=== PATIENT | female | born 2005 | race Caucasian/White ===

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

== ENCOUNTER 2023-02-19 11:57 | Emergency (ER) | payer OTHER ==
[~2023-02-19] VITALS: Ht 162.6 cm; Wt 80.7 kg
[~2023-02-19 11:57] MED LIST changes: +CONCERTA36 MG PO; +CYCLOBENZAPRINE10 MG PO; +FLUTICASONE P10.6 GM; +MELOXICAM7.5 MG PO; +NEXPLANON68 MG SUB-Q; +STRATTERA40 MG PO; +VENTOLIN HFA18 GM INH
[2023-02-19 12:39] LABS: BASOPHILS 0.5 % (0-2); EOSINOPHILS 2.9 % (0-6); HEMATOCRIT 35.9 % (35.0-50.0); LYMPHOCYTES 30.2 % (24-44); MCHC 33.3 g/dl (30-36); MONOCYTES 6.8 % (0-12); NEUTROPHILS 59.6 % (39-80); PLATELET COUNT 184 K/uL (140-440); RBC 4.13 M/ul (4.3-5.7)
[2023-02-19 12:49] LABS: ANION GAP 10.6 (7-21); BUN/CREATININE RATIO 14.28 (6.0-28.6); CALCIUM 8.6 mg/dL (8.5-10.1); CREATININE, SERUM 0.7 mg/dL (0.55-1.02); POTASSIUM 3.6 mmol/L (3.5-5.1)
[2023-02-19] MEDS ORDERED: NAPROSYN500 MG PO (13:59)
[2023-02-19] MEDS ORDERED: VENTOLIN HFA18 GM INH (13:59)
[2023-02-19 14:15] VITALS: BP 113/65
== END 2023-02-19 14:17 | disposition home or self-care (01) ==
LOC: ED 11:57
PROVIDERS: Emergency Medicine
DX: R07.89 Other chest pain (principal); R06.00 Dyspnea, unspecified; F17.200 Nicotine dependence, unspecified, uncomplicated; J45.909 Unspecified asthma, uncomplicated; Z79.51 Long term (current) use of inhaled steroids; Z79.899 Other long term (current) drug therapy; Z79.3 Long term (current) use of hormonal contraceptives
CPT/HCPCS: 36415; 71045; 80048; 85025; 85379; 94640; 96374; 96375; 99285-25; J1885; J2060

== ENCOUNTER 2023-10-02 11:44 | Emergency (ER) | payer OTHER ==
[~2023-10-02] VITALS: Ht 162.6 cm; Wt 73.4 kg
[~2023-10-02 11:44] MED LIST changes: +METHYLPHENIDATE36 MG PO; +NAPROSYN500 MG PO; +ONDANSETRON ODT8 MG PO
--- OUTSIDE RECORDS SUMMARY | 2023-10-02 12:37 | XMS ---
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 E.D. VISIT COUNT (12 MO.) [address] [facility] TOTAL 4 NOTE: Visits indicate total known visits. ED/UCC VISIT TRACKING (12 MO.) 10/02/2023 11:44 [facility] [place] TYPE: Emergency COMPLAINT: - FALL 10 WKS 07/03/2023 12:25 [facility] [place] TYPE: Emergency COMPLAINT: - ABD PAIN, VOMITING, CHILLS, FATIGUE DIAGNOSES: - Anxiety disorder, unspecified - Depression, unspecified - Elevated white blood cell count, unspecified - Nausea with vomiting, unspecified - Noninfective gastroenteritis and colitis, unspecified - Other usp (current) drug therapy - Post-traumatic stress disorder, unspecified - Unspecified asthma, uncomplicated 02/19/2023 11:58 [facility] [place] TYPE: Emergency COMPLAINT: - POST SURGERY, SOB DIAGNOSES: - Dyspnea, unspecified - retirement (current) use of hormonal contraceptives - 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
[2023-10-02] MEDS ORDERED: FLUTICASONE P10.6 GM INH (12:52)
[2023-10-02] MEDS ORDERED: SERTRALINE HCL25 MG PO (12:52)
[2023-10-02] MEDS ORDERED: FLUTICASONE PRO16 GM NAS (12:53)
[2023-10-02 13:32] VITALS: BP 105/69
== END 2023-10-02 13:32 | disposition home or self-care (01) ==
LOC: ED 11:44
DX: O9A.211 Injury, poisoning and certain other consequences of external causes complicating pregnancy, first trimester (principal); S93.402A Sprain of unspecified ligament of left ankle, initial encounter; S30.1XXA Contusion of abdominal wall, initial encounter; Z3A.10 10 weeks gestation of pregnancy; W06.XXXA Fall from bed, initial encounter; Z88.8 Allergy status to other drugs, medicaments and biological substances; Z79.899 Other long term (current) drug therapy
CPT/HCPCS: 76801; 99283-25

== ENCOUNTER 2024-04-25 00:04 | Inpatient (IN) | payer OTHER ==
[~2024-04-25] VITALS: Ht 162.6 cm; Wt 117.9 kg
[~2024-04-25 00:04] MED LIST changes: -BUSPIRONE HCL5 MG PO; +CALCIUM CARBONATE 500 MG CHEW PO PRN; -CEPHALEXIN500 MG PO; -CITALOPRAM HBR20 MG PO; -CLONIDINE HCL0.1 MG PO; -CONCERTA36 MG PO; -CYCLOBENZAPRINE10 MG PO; -FLUOXETINE HCL20 M1 PO; -FLUTICASONE P10.6 GM; +LACTATED RINGER'S 1,000 ML IV SCH; +MAGNESIUM HYDROXIDE/AL HYDROX 30 ML CUP PO PRN; -MELOXICAM7.5 MG PO; -METHYLPHENIDATE36 MG PO; -NAPROSYN500 MG PO; -NEXPLANON68 MG SUB-Q; -ONDANSETRON ODT8 MG PO; -PROTONIX40 MG PO; -STRATTERA40 MG PO; -VENTOLIN HFA18 GM INH; +miSOPROStoL 25 MCG TAB PV SCH
[2024-04-25 00:46] LABS: HEMOGLOBIN 12.6 g/dL (12.0-18.0); MCH 28.4 (27-36); MCV 83.3 fl (81-99); RBC 4.44 M/ul (4.3-5.7); RDW 16.6 (10.5-15.0)
[2024-04-25 01:03] LABS: AMPHETAMINES, URINE NEGATIVE (NEGATIVE); BARBITURATES, URINE NEGATIVE (NEGATIVE); BENZODIAZEPINE, URINE NEGATIVE (NEGATIVE); BUPRENORPHINE, URINE NEGATIVE (NEGATIVE); CANNABINOID, URINE NEGATIVE (NEGATIVE); COCAINE, URINE NEGATIVE (NEGATIVE); ECSTASY, URINE NEGATIVE (NEGATIVE); FENTANYL, URINE NEGATIVE (NEGATIVE); METHADONE, URINE NEGATIVE (NEGATIVE); OPIATES, URINE NEGATIVE (NEGATIVE); OXYCODONE, URINE NEGATIVE (NEGATIVE); PHENCYCLIDINE, URINE NEGATIVE (NEGATIVE)
[2024-04-25 01:24] LABS: ABO A; ANTIBODY SCREEN NEGATIVE; RH POSITIVE
[2024-04-25] MEDS ORDERED: CEFAZOLIN SODIUM 3 GM/30 ML SYR ONE (18:02)
[2024-04-25] MEDS ORDERED: DEXAMETHASONE SOD PHOS 4 MG/ML VIAL ONE (18:07)
[2024-04-25] MEDS ORDERED: MORPHINE SULFATE 1 MG/ML VIAL ONE (18:07)
[2024-04-25] MEDS ORDERED: OXYTOCIN 10 UNITS/ML VIAL ONE (18:07)
[2024-04-25] MEDS ORDERED: ondansetron HCL 4 MG/2 ML VIAL ONE (18:07)
[2024-04-25] MEDS ORDERED: LIDOCAINE HCL 2% 5 ML SDV ONE (18:07)
[2024-04-25] MEDS ORDERED: BUPIVACAINE 0.75% IN DEXTROSE 2 ML AMP ONE (18:07)
[2024-04-25] MEDS ORDERED: fentaNYL citrate 100 MCG/2 ML VIAL ONE (18:07)
[2024-04-25] MEDS ORDERED: Ropivacaine HCl 0.5% 30 ML VIAL ONE (18:08)
[2024-04-25] MEDS ORDERED: SODIUM CHLORIDE 0.9% 20 ML IV ONE (18:08)
[2024-04-25] MEDS ORDERED: CEFAZOLIN SODIUM 3 GM/30 ML SYR IV SCH (18:34)
[2024-04-25] MEDS ORDERED: PHENYLEPHRINE HCL 10 MG/ML VIAL ONE (18:37)
[2024-04-25] MEDS ORDERED: SOD+POT BICARB/CITRIC ACID 2 EA TABLET.EFF PO ONE (18:45)
[2024-04-25] MEDS ORDERED: LACTATED RINGER'S 1,000 ML IV PRN (18:45)
[2024-04-25] MEDS ORDERED: MIDAZOLAM HCL 2 MG/2 ML VIAL ONE (18:50)
[2024-04-25] MEDS ORDERED: LACTATED RINGER'S 1,000 ML IV ONE (18:50)
[2024-04-25] MEDS ORDERED: NALOXONE HCL 0.4 MG SYR IV PRN (19:30)
[2024-04-25] MEDS ORDERED: ondansetron HCL 4 MG/2 ML VIAL IV PRN ×2 (19:30→20:30)
[2024-04-25] MEDS ORDERED: KETOROLAC TROMETHAMINE 30 MG/ML VIAL IV PRN (19:30)
[2024-04-25] MEDS ORDERED: PROCHLORPERAZINE EDISYLATE 10 MG/2 ML VIAL IV PRN ×2 (19:30→20:30)
[2024-04-25] MEDS ORDERED: HYDROmorphone HCL 1 MG/ML SYR IV PRN (19:30)
[2024-04-25] MEDS ORDERED: diphenhydrAMINE HCL 50 MG/ML VIAL IV PRN (19:30)
[2024-04-25 20:21] VITALS: BP 105/54
--- NOTE | 2024-04-25 20:28 | NUR ---
04/25/242027 Katya Rod 1943-PT ARRIVES TO [facility] ROOM 105 VIA STRETCHER, RESTING SEMI FOWLERS. PT A+O X4, DENIES PAIN OR NAUSEA. VSS ON RA, RR EVEN AND UNLABORED. PT HAS A 20G IV IN THE RFA, INFUSING IV FLUIDS PER ORDER. 1954-HOB SLOWLY RAISED AND PT BABY, PT DENIES PAIN OR NAUSEA. VSS ON RA. 1999-BEDSIDE REPORT GIVEN TO [facility] RN, ALL QUESTIONS ANSWERED, FINAL FUNDAL CHECK COMPLETED W/ [facility] RN.
[2024-04-25] MEDS ORDERED: PROMETHAZINE HCL 25 MG SUPP PR PRN (20:30)
[2024-04-25] MEDS ORDERED: METOCLOPRAMIDE HCL 10 MG/2 ML SDV IV PRN (20:30)
[2024-04-25] MEDS ORDERED: bisacodyL 10 MG SUPP PR PRN (20:30)
[2024-04-25] MEDS ORDERED: PROMETHAZINE HCL 25 MG TAB PO PRN (20:30)
[2024-04-25] MEDS ORDERED: LIDOCAINE 2% VISCOUS 6 ML SYR TOP ONE (20:30)
[2024-04-25] MEDS ORDERED: OXYTOCIN/0.9 % SODIUM CHLORIDE 500 ML IV SCH (20:30)
[2024-04-25] MEDS ORDERED: HYDROCODONE/ACETA 5/325 TAB PO PRN (20:45)
[2024-04-25] MEDS ORDERED: SENNOSIDES/DOCUSATE 1 EA TAB PO SCH (21:00)
[2024-04-26] MEDS ORDERED: IBUPROFEN 600 MG TAB PO SCH (02:00)
[2024-04-26] MEDS ORDERED: ACETAMINOPHEN 325 MG TAB PO SCH (03:00)
[2024-04-28] MEDS ORDERED: LACTATED RINGER'S 1,000 ML IV SCH (14:00)
== END 2024-04-28 13:30 | disposition home or self-care (01) | DRG 788 ==
LOC: FBC 00:04
PROVIDERS: ADMIT Obstetrics & Gynecology; ATTEND Obstetrics & Gynecology
PROC: 10D00Z1 Extraction of Products of Conception, Low, Open Approach (ICD-10-PCS; principal; 2024-04-25)
DX: O36.63X0 Maternal care for excessive fetal growth, third trimester, not applicable or unspecified (principal); Z3A.39 39 weeks gestation of pregnancy; Z37.0 Single live birth; O77.0 Labor and delivery complicated by meconium in amniotic fluid; O69.81X0 Labor and delivery complicated by cord around neck, without compression, not applicable or unspecified; O76 Abnormality in fetal heart rate and rhythm complicating labor and delivery; Z98.890 Other specified postprocedural states; Z87.891 Personal history of nicotine dependence; Z88.8 Allergy status to other drugs, medicaments and biological substances; O99.344 Other mental disorders complicating childbirth; O99.52 Diseases of the respiratory system complicating childbirth; O99.62 Diseases of the digestive system complicating childbirth; K21.9 Gastro-esophageal reflux disease without esophagitis; J45.909 Unspecified asthma, uncomplicated; F41.9 Anxiety disorder, unspecified; F43.10 Post-traumatic stress disorder, unspecified; F90.9 Attention-deficit hyperactivity disorder, unspecified type; Z79.899 Other long term (current) drug therapy
CPT/HCPCS: 01961; 36415; 76942; 80307; 85027; 86850; 86900; 86901; A9270; J0690; J1100; J2003; J2250; J2274; J2371; J2405; J2590; J2795; J3010; J7121

== ENCOUNTER 2024-06-03 17:40 | Emergency (ER) | payer OTHER ==
[~2024-06-03] VITALS: Ht 152.4 cm; Wt 107.8 kg
[~2024-06-03 17:40] MED LIST changes: +BUSPIRONE HCL5 MG PO; -CALCIUM CARBONATE 500 MG CHEW PO PRN; +CEPHALEXIN500 MG PO; +CITALOPRAM HBR20 MG PO; +CLONIDINE HCL0.1 MG PO; +CONCERTA36 MG PO; +CYCLOBENZAPRINE10 MG PO; +FLUOXETINE HCL20 M1 PO; +FLUTICASONE P10.6 GM; +FLUTICASONE P10.6 GM INH; +FLUTICASONE PRO16 GM NAS; -LACTATED RINGER'S 1,000 ML IV SCH; -MAGNESIUM HYDROXIDE/AL HYDROX 30 ML CUP PO PRN; +MELOXICAM7.5 MG PO; +METHYLPHENIDATE36 MG PO; +NAPROSYN500 MG PO; +NEXPLANON68 MG SUB-Q; +ONDANSETRON ODT8 MG PO; +PROTONIX40 MG PO; +SERTRALINE HCL25 MG PO; +STRATTERA40 MG PO; +VENTOLIN HFA18 GM INH; -miSOPROStoL 25 MCG TAB PV SCH
[2024-06-03] MEDS ORDERED: PRENATAL + DHA1 EAC1 PO (18:49)
[2024-06-03] MEDS ORDERED: PEPCID AC20 MG PO (18:49)
[2024-06-03 19:33] LABS: BASOPHILS 0.3 % (0-2); EOSINOPHILS 3.7 % (0-6); HEMATOCRIT 40.4 % (35.0-50.0); HEMOGLOBIN 13.4 g/dL (12.0-18.0); LYMPHOCYTES 28.6 % (24-44); MCH 27.9 (27-36); MCHC 33.3 g/dl (30-36); MCV 83.9 fl (81-99); MONOCYTES 6.8 % (0-12); NEUTROPHILS 60.6 % (39-80); PLATELET COUNT 267 K/uL (140-440); RBC 4.81 M/ul (4.3-5.7); RDW 15.2 (10.5-15.0)
[2024-06-03 20:15] VITALS: BP 102/62
== END 2024-06-03 20:20 | disposition home or self-care (01) ==
LOC: ED 17:40
PROVIDERS: Emergency Medicine
DX: O72.1 Other immediate postpartum hemorrhage (principal); F43.10 Post-traumatic stress disorder, unspecified; J45.909 Unspecified asthma, uncomplicated; Z87.891 Personal history of nicotine dependence; Z79.51 Long term (current) use of inhaled steroids; Z79.899 Other long term (current) drug therapy; Z88.8 Allergy status to other drugs, medicaments and biological substances
CPT/HCPCS: 36415; 84703; 85025; 99284

== ENCOUNTER 2024-09-06 10:10 | Emergency (ER) | payer OTHER ==
[~2024-09-06] VITALS: Ht 152.4 cm; Wt 114.6 kg
[~2024-09-06 10:10] MED LIST changes: +PEPCID AC20 MG PO; +PRENATAL + DHA1 EAC1 PO
[2024-09-06] MEDS ORDERED: METOCLOPRAMIDE HCL 10 MG/2 ML SDV IV ONE (12:15)
[2024-09-06] MEDS ORDERED: diphenhydrAMINE HCL 50 MG/ML VIAL IV ONE (12:15)
[2024-09-06] MEDS ORDERED: SODIUM CHLORIDE 0.9% 1,000 ML IV PRN (12:15)
[2024-09-06] MEDS ORDERED: KETOROLAC TROMETHAMINE 15 MG/ML VIAL IV ONE (12:15)
[2024-09-06 12:22] LABS: BILIRUBIN, URINE NEGATIVE (negative); BLOOD/HGB, URINE MODERATE (Negative); KETONE, URINE NEGATIVE (Negative); LEUK ESTERASE, URINE NEGATIVE (negative); NITRITE, URINE NEGATIVE (negative)
[2024-09-06 12:28] LABS: BACTERIA, URINE RARE /hpf (negative); CASTS, URINE NONE SEEN \\lpf; COLLECTION TYPE, URINE CLEAN CATCH; CRYSTALS, URINE NONE SEEN (0-1+); EPITHELIAL CELLS, URINE SQUAMOUS 1+ /lpf (0-1+); REFLEX CULTURE, URINE No (No); WHITE BLOOD CELLS, URINE 0-1 /HPF (0-5)
[2024-09-06 15:13] VITALS: BP 102/70
== END 2024-09-06 14:56 | disposition home or self-care (01) ==
LOC: ED 10:10
PROVIDERS: Emergency Medicine
DX: R51.9 Headache, unspecified (principal); F43.10 Post-traumatic stress disorder, unspecified; Z87.891 Personal history of nicotine dependence; J45.909 Unspecified asthma, uncomplicated; Z88.1 Allergy status to other antibiotic agents
CPT/HCPCS: 81001; 96374; 96375; 99283-25; J1200; J1885; J2765; J7030

== ENCOUNTER 2024-10-01 19:52 | Emergency (ER) | payer OTHER ==
[~2024-10-01] VITALS: Ht 152.4 cm; Wt 110.9 kg
--- OUTSIDE RECORDS SUMMARY | 2024-10-01 19:59 | XMS ---
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: [facility] Current FAMILY PHONE: [phone] EH LINDSEY [facility] Current PHONE: Unknown JAMES MEDINA Family [facility] Current PHONE: Unknown Ravi has no Care Guidelines for this patient. Surya VISIT COUNT (12 MO.) 4 [facility] TOTAL 4 NOTE: Visits indicate total known visits. ED/UCC VISIT TRACKING (12 MO.) 10/01/2024 19:53 [facility] [place] TYPE: Emergency COMPLAINT: - COLD SYMPTOMS 09/06/2024 10:11 [facility] [place] TYPE: Emergency COMPLAINT: - DIZZY DIAGNOSES: - Allergy status to other antibiotic agents - Dizziness and giddiness - Headache, unspecified - Personal history of nicotine dependence - Post-traumatic stress disorder, unspecified - Unspecified asthma, uncomplicated 06/03/2024 17:40 [facility] [place] TYPE: Emergency COMPLAINT: - VAGINAL BLEEDING DIAGNOSES: - Allergy status to other drugs, medicaments and biological substances - CHCF (current) use of inhaled steroids - Other immediate hemorrhage - Other chcf (current) drug therapy - Personal history of nicotine dependence - Post-traumatic stress disorder, unspecified - Unspecified asthma, uncomplicated 10/02/2023 11:44 [facility] [place] TYPE: Emergency COMPLAINT: - FALL 10 WKS DIAGNOSES: - 10 weeks gestation of - Allergy status to other drugs, medicaments and biological substances - Contusion of abdominal wall, initial encounter - Fall from bed, initial encounter - Injury, poisoning and certain other consequences of external causes complicating , first trimester - Other chcf (current) drug therapy - Sprain of unspecified ligament of left ankle, initial encounter INPATIENT VISIT TRACKING (12 MO.) 04/25/2024 00:04 [facility] [place] TYPE: [facility] COMPLAINT: - INDUCTION DIAGNOSES: - 39 weeks gestation of - 39 weeks gestation of - Abnormality in heart rate and rhythm complicating labor and delivery - Abnormality in heart rate and rhythm complicating labor and delivery - Allergy status to other drugs, medicaments and biological substances - Allergy status to other drugs, medicaments and biological substances - Anxiety disorder, unspecified - Anxiety disorder, unspecified - Attention-deficit hyperactivity disorder, unspecified type - Attention-deficit hyperactivity disorder, unspecified type - Diseases of the digestive system complicating childbirth - Diseases of the digestive system complicating childbirth - Diseases of the respiratory system complicating childbirth - Diseases of the respiratory system complicating childbirth - Gastro-esophageal reflux disease without esophagitis - Gastro-esophageal reflux disease without esophagitis - Labor and delivery complicated by cord around neck, without compression, not applicable or unspecified - Labor and delivery complicated by cord around neck, without compression, not applicable or unspecified - Labor and delivery complicated by meconium in amniotic fluid - Labor and delivery complicated by meconium in amniotic fluid - Maternal care for excessive growth, third trimester, not applicable or unspecified - Other meterman (current) drug therapy - Other chcf (current) drug therapy - Other mental disorders complicating childbirth - Other mental disorders complicating childbirth - Other specified postprocedural states - Other specified postprocedural states - Personal history of nicotine dependence - Personal history of nicotine dependence - Post-traumatic stress disorder, unspecified - Post-traumatic stress disorder, unspecified - Single live - Single live - Unspecified asthma, uncomplicated - Unspecified asthma, uncomplicated [email or web address]
[2024-10-01 21:06] VITALS: BP 114/69
== END 2024-10-01 21:08 | disposition home or self-care (01) ==
LOC: ED 19:52
DX: J06.9 Acute upper respiratory infection, unspecified (principal)
CPT/HCPCS: 87651; 99283